=== PATIENT | female | born 1980 | race Two or more races ===

== ENCOUNTER 2020-04-17 07:06 | Inpatient (IN) | payer MEDICAID, OTHER ==
[~2020-04-17] VITALS: Ht 170.2 cm; Wt 87.1 kg
[2020-04-17] MEDS ORDERED: SODIUM CHLORIDE 0.9% 1,000 ML IV ONE (08:00)
[2020-04-17 08:19] LABS: Basophils # (auto) 0 10 ^3/uL (0-0.2); Basophils % (auto) 0.7 % (0.0-2.0); Eosinophils # (auto) 0 10 ^3/uL (0-0.8); Hematocrit 41.4 % (36.0-46.0); Hemoglobin 13.9 g/dL (12.2-16.2); Lymphocytes # (auto) 0.8 10 ^3/uL (0.4-5.4); Lymphocytes % (auto) 24.4 % (10.0-50.0); Mean Corpuscular Hemoglobin 30.7 pg (28.0-32.0); Mean Corpuscular Hgb Conc. 33.7 g/dL (32.0-36.0); Mean Corpuscular Volume 91.1 fL (80.0-100.0); Monocytes # (auto) 0.4 10 ^3/uL (0-1.3); Monocytes % (auto) 13.3 % (0.0-12.0); Neutrophils # (auto) 1.9 10 ^3/uL (1.6-8.6); Neutrophils % (auto) 60.6 % (37.0-80.0); Nucleated Red Blood Cells % 0.1 %; Platelet Count (auto) 225 10^3/uL (140-450); Red Blood Cells 4.54 10^6/uL (4.0-5.20); Red Cell Distribution Width 13.4 % (11.8-14.3); White Blood Cell 3.1 10^3/uL (4.4-10.8)
[2020-04-17 08:34] LABS: Alanine Aminotransferase 56 U/L (13-56); Albumin 2.9 g/dL (3.4-5.0); Anion Gap 5 (5-15); Aspartate Aminotransferase 40 U/L (15-37); BUN/Creatinine Ratio 9.5; Blood Urea Nitrogen 6 mg/dL (7-18); Carbon Dioxide 22 mmol/L (21-32); Chloride 116 mmol/L (98-107); GFR African American 136 mL/min; GFR Non-African American 112 mL/min; Glucose 107 mg/dL (74-106); Magnesium 1.9 mg/dL (1.6-2.6); Potassium 3.2 mmol/L (3.5-5.1); Sodium 143 mmol/L (136-145)
[2020-04-17 08:40] LABS: Alkaline Phosphatase 57 U/L (45-117); Bilirubin, Total 0.3 mg/dL (0.2-1.0); Lactate Dehydrogenase 169 U/L (84-246); Total Protein 6.3 g/dL (6.4-8.2)
[2020-04-17] MEDS ORDERED: AZITHROMYCIN 500MG/ 250ML 250 ML IV ONE (09:30)
[2020-04-17] MEDS ORDERED: cefTRIAXone 1GM/50ML D5W 50 ML IV ONE (09:30)
[2020-04-17 10:50] LABS: Urine Bacteria FEW /hpf (None Seen); Urine Blood Negative /uL (Negative); Urine Mucus FEW (None Seen); Urine Specific Gravity 1.014 (1.001-1.035); Urine WBC 1 /hpf (0 - 5)
[2020-04-17] MEDS ORDERED: MORPHINE SULF INJ 2 MG/ML SYRINGE 1ML IV PRN ×2 (12:30)
[2020-04-17] MEDS ORDERED: NITROGLYCERIN 0.4 MG SL TAB SL PRN (12:30)
[2020-04-17] MEDS ORDERED: HYDROcodone-ACET 5/325MG TAB PO PRN (12:30)
[2020-04-17] MEDS ORDERED: ACETAMINOPHEN 500 MG TAB PO PRN ×2 (12:30)
[2020-04-17] MEDS ORDERED: ONDANSETRON HCL 4 MG/2 ML VIAL IV PRN (12:30)
[2020-04-17] MEDS ORDERED: POTASSIUM EFFERVESENT TAB 25 MEQ PO ONE (12:45)
[2020-04-17] MEDS ORDERED: CHOLECALCIFEROL (VITD3) 1,000IU=25mCg TAB PO ONE (12:45)
[2020-04-17] MEDS ORDERED: ASCORBIC ACID 1,000 MG TAB PO ONE (12:45)
[2020-04-17] MEDS ORDERED: ENOXAPARIN SOD 40 MG/0.4 ML SYRINGE SC ONE (12:45)
[2020-04-17] MEDS ORDERED: FAMOTIDINE 20 MG TAB PO ONE (12:45)
[2020-04-17] MEDS ORDERED: ZINC SULFATE 220mg CAP or TAB PO ONE (12:45)
[2020-04-17] MEDS: DexAMETHasone SOD PHOS 4 MG/1ML SDV INJ IV SCH ×2 (13:28→22:04)
[2020-04-17 14:35] VITALS: BP 96/56
[2020-04-17] MEDS: ALBUTEROL SULF HFA 90MCG INH 200DOSE IN SCH ×2 (14:54→22:01)
[2020-04-17 15:02] VITALS: BP 100/74
[2020-04-17 17:00] VITALS: BP 103/58
[2020-04-17 20:00] VITALS: BP 108/67
[2020-04-17] MEDS: DOXYCYCLINE 100 MG TAB/CAP PO SCH (22:04)
[2020-04-17] MEDS: hydrOXYchloroQUINE SULFATE 200 MG TAB PO SCH (22:04)
[2020-04-17 22:37] VITALS: BP 108/67
[2020-04-18 05:09] LABS: Basophils # (auto) 0 10 ^3/uL (0-0.2); Basophils % (auto) 0.4 % (0.0-2.0); Eosinophils # (auto) 0 10 ^3/uL (0-0.8); Hematocrit 40.7 % (36.0-46.0); Hemoglobin 13.8 g/dL (12.2-16.2); Lymphocytes # (auto) 0.4 10 ^3/uL (0.4-5.4); Lymphocytes % (auto) 10.2 % (10.0-50.0); Mean Corpuscular Volume 91.3 fL (80.0-100.0); Monocytes # (auto) 0.1 10 ^3/uL (0-1.3); Monocytes % (auto) 2.4 % (0.0-12.0); Neutrophils # (auto) 3.2 10 ^3/uL (1.6-8.6); Nucleated Red Blood Cells % 0.1 %; Platelet Count (auto) 231 10^3/uL (140-450); Red Blood Cells 4.46 10^6/uL (4.0-5.20); Red Cell Distribution Width 13.1 % (11.8-14.3); White Blood Cell 3.7 10^3/uL (4.4-10.8)
[2020-04-18 05:17] VITALS: BP 100/56
[2020-04-18 05:26] LABS: Albumin 3.8 g/dL (3.4-5.0); Calcium 9.5 mg/dL (8.5-10.1); Potassium 4.3 mmol/L (3.5-5.1)
[2020-04-18 05:30] LABS: BUN/Creatinine Ratio 12.2; Bilirubin, Total 0.3 mg/dL (0.2-1.0); Total Protein 7.6 g/dL (6.4-8.2)
[2020-04-18] MEDS: ALBUTEROL SULF HFA 90MCG INH 200DOSE IN SCH ×2 (06:00→14:30)
[2020-04-18] MEDS ORDERED: ENOXAPARIN SOD 40 MG/0.4 ML SYRINGE SC SCH (10:00)
[2020-04-18] MEDS ORDERED: POTASSIUM EFFERVESENT TAB 25 MEQ PO SCH (10:00)
[2020-04-18] MEDS ORDERED: ASCORBIC ACID 1,000 MG TAB PO SCH (10:00)
[2020-04-18] MEDS ORDERED: ZINC SULFATE 220mg CAP or TAB PO SCH (10:00)
[2020-04-18] MEDS ORDERED: FAMOTIDINE 20 MG TAB PO SCH (10:00)
[2020-04-18] MEDS: hydrOXYchloroQUINE SULFATE 200 MG TAB PO SCH (10:00)
[2020-04-18] MEDS ORDERED: CHOLECALCIFEROL (VITD3) 1,000IU=25mCg TAB PO SCH (10:00)
[2020-04-18] MEDS: DexAMETHasone SOD PHOS 4 MG/1ML SDV INJ IV SCH (11:14)
[2020-04-18] MEDS: DOXYCYCLINE 100 MG TAB/CAP PO SCH (11:24)
[2020-04-18] MEDS ORDERED: ALBUAER3 IN (11:42)
[2020-04-18] MEDS ORDERED: ASCO10003 PO (11:42)
[2020-04-18] MEDS ORDERED: AZIT500T66 PO (11:42)
[2020-04-18] MEDS ORDERED: CHOL20007 PO (11:42)
[2020-04-18] MEDS ORDERED: hydrOXYchloroQUINE SULFATE 200 MG TAB PO SCH (22:00)
== END 2020-04-18 17:00 | disposition home or self-care (01) | DRG 137 ==
LOC: ER 07:06 → TELE 07:07 → TELE-EAST 15:09
PROVIDERS: ADMIT Nurse Practitioner Acute Care; ATTEND Thoracic Surgery (Cardiothoracic Vascular Surgery)
DX: U07.1 COVID-19 (principal); E44.0 Moderate protein-calorie malnutrition; J12.89 Other viral pneumonia; E83.51 Hypocalcemia; E87.6 Hypokalemia; Z88.8 Allergy status to other drugs, medicaments and biological substances; J06.9 Acute upper respiratory infection, unspecified; J40 Bronchitis, not specified as acute or chronic; Z90.710 Acquired absence of both cervix and uterus; Z68.28 Body mass index [BMI] 28.0-28.9, adult
CPT/HCPCS: 36415; 71045; 80053; 81001; 82728; 83605; 83615; 83735; 84484; 85025; 85379; 86141; 87040; 87070; 87804; 87880; 94640; 96365; 96366; 96368; 96375; G0378; J0696; J1100; J2405

== ENCOUNTER 2023-08-06 07:59 | Emergency (ER) | payer MEDICAID, OTHER ==
[~2023-08-06] VITALS: Ht 170.2 cm; Wt 84.5 kg
[~2023-08-06 07:59] MED LIST: ALBUAER3 IN; ASCO10003 PO; AZIT500T66 PO; CHOL20007 PO
[2023-08-06] MEDS ORDERED: KETOROLAC TROMETH 60MG/2ML VIAL IM ONE (09:00)
[2023-08-06 11:45] LABS: Rapid Influenza A Negative (Negative); Rapid Influenza B Negative (Negative)
[2023-08-06] MEDS ORDERED: SODIUM CHLORIDE 0.9% 1,000 ML IV ONE (11:45)
[2023-08-06] MEDS ORDERED: ACET500T58 PO (12:04)
[2023-08-06] MEDS ORDERED: IBUP-1455 PO (12:04)
[2023-08-06] MEDS ORDERED: LORA10CA PO (12:04)
[2023-08-06 12:05] LABS: COVID19 ANTIGEN SOFIA FIA POSITIVE (NEGATIVE)
[2023-08-06 14:09] VITALS: BP 99/72; PULSE 87; RESP 18; TEMP 97.6; O2SAT 97
== END 2023-08-06 14:22 | disposition home or self-care (01) ==
LOC: ER 07:59
DX: U07.1 COVID-19 (principal)
CPT/HCPCS: 36415; 71046; 87426; 87804; 96360; 96361; 96372; 99284; J1885; J7030

== ENCOUNTER 2024-04-29 22:32 | Emergency (ER) | payer MEDICAID ==
[~2024-04-29] VITALS: Ht 170.2 cm; Wt 85.8 kg
[~2024-04-29 22:32] MED LIST changes: +ACET500T58 PO; +IBUP-1455 PO; +LORA10CA PO
[2024-04-29] MEDS: methylPREDNISolone SOD SUCC 125 MG/2 ML VL IV ONE (23:02)
[2024-04-29] MEDS: EPINEPHrine HCL 1 MG/1 ML AMP SC ONE (23:03)
[2024-04-29] MEDS: FAMOTIDINE (10MG/ML) 2ML VL IV ONE (23:03)
[2024-04-29] MEDS: diphenhdrAMINE HCL 50 MG/1 ML VL IV ONE (23:03)
[2024-04-30 00:25] VITALS: BP 126/70; TEMP 97.2
[2024-04-30 01:40] VITALS: PULSE 72; RESP 18; O2SAT 98
== END 2024-04-30 01:54 | disposition home or self-care (01) ==
LOC: ER 22:32
DX: T78.49XA Other allergy, initial encounter (principal); Z79.899 Other long term (current) drug therapy; X58.XXXA Exposure to other specified factors, initial encounter
CPT/HCPCS: 96372; 96374; 96375; 99284; J0171; J1200; J2919; J3490

== ENCOUNTER 2025-02-28 21:18 | Emergency (ER) | payer MEDICAID ==
[~2025-02-28] VITALS: Ht 170.2 cm; Wt 88.8 kg
[2025-02-28] MEDS: FAMOTIDINE (10MG/ML) 2ML VL IV ONE (21:44)
[2025-02-28] MEDS: SODIUM CHLORIDE 0.9% 1,000 ML IV ONE (21:44)
[2025-02-28] MEDS: diphenhdrAMINE HCL 50 MG/1 ML VL IV ONE (21:44)
[2025-02-28] MEDS: EPINEPHrine HCL 1 MG/1 ML AMP IM ONE (21:44)
[2025-02-28] MEDS ORDERED: DexAMETHasone INJECTION 10 MG in D5W 5% 50 ML IV ONE (21:45)
[2025-02-28] MEDS: ALBUTEROL SULF 2.5 MG/0.5ML(0.5%) NEB SOLN NEB ONE (21:48)
[2025-02-28] MEDS: DexAMETHasone SOD PHOS 10MG/1ML VIAL INJ IV ONE (21:51)
[2025-02-28 21:54] VITALS: PULSE 88; RESP 22; O2SAT 99
--- NOTE | 2025-02-28 22:47 | ED.PDOC ---
History of Present Illness HPI Comments 44 y/o obese F, with a history of shellfish allergy, presents with c/o throat- tightness, with associated raspy-voice and shortness of breath, and generalized itching sensation s/p exposure to known allergen, today. Patient reports on progressively worsening symptoms following sudden onset 30 minutes prior to arrival after consuming "shrimp" 2 hours ago. She endorses on taking Benadryl, with no improvement or relief to symptoms, earlier. Denies any chest or throat pain, rash, or other associated symptoms. Chief Complaint: Allergic Reaction Time Seen by MD: 21:50 Primary Care Provider: STEFANO Reviewed Notes: Nurses Notes, Medications, Allergies Allergies: Coded Allergies: Shellfish Allergy (Verified Allergy, Intermediate, 02/28/25) Anaphylaxis, Angioedema, Bronchospasm Uncoded Allergies: CEFPODAXIN (Allergy, Unknown, 04/17/20) Home Meds Active Scripts Ibuprofen Micronized (Ibuprofen) 800 Mg Tab, 800 MG PO Q8HP PRN, #20 TAB Prov:SEAN BARRERA PAC 08/06/23 Loratadine (Claritin) 10 Mg Cap, 10 MG PO DAILY for 14 Days, #14 CAP Prov:SEAN BARRERA PAC 08/06/23 Acetaminophen (Acetaminophen) 500 Mg Tab, 500 MG PO Q4HP PRN, #30 TAB Prov:SEAN BARRERA PAC 08/06/23 Albuterol Sulfate (VENTOLIN MDI) 90 Mcg Ih, 90 MCG IN Q6HP PRN, #1 INH Prov:JESSIE OLMSTEAD MD 04/18/20 Azithromycin (Azithromycin) 500 Mg Tab, 1 TAB PO DAILY, #5 TAB Prov:JESSIE OLMSTEAD MD 04/18/20 Cholecalciferol (VITAMIN D3) 2,000 Unit Tab, 2 TAB PO DAILY for 60 Days, #120 TAB 0 Refills Prov:JESSIE OLMSTEAD MD 04/18/20 Ascorbic Acid (Gnp Vitamin C W/Valeri Hips) 1,000 Mg Tab, 1000 MG PO DAILY for 60 Days, #60 TAB Prov:JESSIE OLMSTEAD MD 04/18/20 Information Source: Patient Mode of Arrival: Ambulatory Severity: Moderate Timing: Minutes Duration: Since onset Prehospital treatment: Other (benadryl) Review of Systems: REVIEW OF SYSTEMS: No fever, no chills, or fatigue HEENT: Raspy-voice, throat tightness. No sore throat, no earache, no congestion, no neck pain. Cardiac: No chest pain. No palpitations. Lungs: Shortness of breath, no cough. GI: No nausea, no vomiting, no diarrhea, no constipation, no abdominal pain : No dysuria, frequency, or urgency. No hematuria. Musculoskeletal: No joint pain , no joint swelling, no extremity edema. Skin: Generalized itching, no rash Neuro: No headache, no dizziness, no weakness Vital Signs Vital Signs Date Time Temp Pulse Resp B/P (MAP) Pulse Ox O2 Delivery O2 Flow Rate FiO2 03/01/25 02:00 98.7 76 17 104/67 (79) 99 98.7 02/28/25 21:54 Room Air* 0 21 Physical Exam General: Awake, alert and oriented. No acute distress. Skin: No hives or rash. Skin in warm, dry and intact. Appropriate color for ethnicity. HEENT: Wheezy, raspy-sounding voice. No posterior pharyngeal edema. The head is normocephalic and atraumatic. Conjunctivae are clear without exudates or hemorrhage. Sclera is non-icteric. EOM are intact. No signs of nystagmus. Eyelids are normal in appearance without swelling or lesions. Oral mucosa is pink and moist Neck: The neck is supple with normal range of motion. No JVD. Cardiac: Heart rate rapid, rhythm is normal. No murmurs, gallops, or rubs are auscultated. Respiratory: No signs of respiratory distress. No stridor or drooling. Lung sounds are clear in all lobes bilaterally without rales or rhonchi. Abdominal: Abdomen is soft, non-tender without distention. Bowel sounds are present and normoactive in all four quadrants. Extremities: Upper and lower extremities are atraumatic in appearance without deformity or edema. Neurological: The patient is awake, alert and oriented to person, place, and time with normal speech. Speech is clear. There is no facial asymmetry. Psychiatric: Appropriate mood and affect. Good judgement and insight. Past Medical History PAST MEDICAL HISTORY: Denies Surgical History: Hysterectomy ORGANIZATIONAL EFFECTIVENESS CONSULTANT History: No Pertinent ORGANIZATIONAL EFFECTIVENESS CONSULTANT History Family History Family History: Reviewed,noncontributory to illness, No family hx of Cancer, No family hx of DM, No family hx of Heart gildardo, No family hx of HTN, No family hx ofKidney gildardo, No family hx of Liver gildardo, No family hx of Lung gildardo, No family hx of Stroke Social History Smoker: Non-Smoker Alcohol: Denies ETOH Use Drugs: Denies Drug Use Lives In: Home Other Allergy to shellfish Was a procedure done? Was a procedure done?: No Differential Dx Considerations may include: Anaphylaxis, Angioedema, Bronchospasm X-Ray, Labs, Meds, VS Vital Signs Date Time Temp Pulse Resp B/P (MAP) Pulse Ox O2 Delivery O2 Flow Rate FiO2 03/01/25 02:00 98.7 76 17 104/67 (79) 99 98.7 02/28/25 21:54 88 22 99 Room Air* 0 21 02/28/25 21:53 99.9 88 23 107/63 (78) 99 99.9 02/28/25 21:48 18 100 Nasal Cannula* 1 24 02/28/25 21:35 20 98 Room Air 0 02/28/25 21:30 98.0 97 20 101/74 (83) 98 98.0 Current Medications Medications (Trade) Dose Ordered Sig/Roseanne Route Start Time Stop Time Status Last Admin Albuterol (Ventolin Medneb) 2.5 mg ONCE ONCE NEB 02/28/25 21:30 02/28/25 21:31 DC 02/28/25 21:48 Diphenhydramine HCl (Benadryl Injection) 50 mg ONCE ONCE IV 02/28/25 21:30 02/28/25 21:31 DC 02/28/25 21:44 Sodium Chloride 1,000 ml @ 1,000 mls/hr Q1H ONCE IV 02/28/25 21:30 02/28/25 22:29 DC 02/28/25 21:44 Epinephrine HCl 0.3 mg ONCE ONCE IM 02/28/25 21:30 02/28/25 21:31 DC 02/28/25 21:44 Famotidine (Pepcid Injection) 20 mg ONCE ONCE IV 02/28/25 21:30 02/28/25 21:31 DC 02/28/25 21:44 Dexamethasone Sodium Phosphate (Decadron Injection) 10 mg ONCE ONCE IV 02/28/25 21:45 02/28/25 21:46 DC 02/28/25 21:[address] [address] Ph: [phone] DIAGNOSTIC IMAGING Diagnostic Imaging Report : [id number] Signed PATIENT: GERTRUDE GALLO ACCT: [id number] UNIT: [id number] : 1980 LOC: ER ROOM / BED: / AGE / SEX: 44 / F ADM STATUS: REG ER SERVICE 24 ORDERING PHYSICIAN: JEFF CATHERINE MD PROCEDURE(s): CXRP - CHEST PORTABLE REASON: CP ORDER NUMBER(s): [id number], ACCESSION NUMBER(s): [id number] CHEST RADIOGRAPH Indication: CP Technique: Single frontal view of the chest was obtained Comparison: CHEST PORTABLE on DOS: 04/17/20 FINDINGS: Lines and Tubes: None Lungs: No focal consolidation. Pleura: No effusion. No pneumothorax. Cardiomediastinal contours: Unremarkable Bones: No acute osseous abnormality. IMPRESSION: 1. No acute cardiopulmonary disease. ATED BY: JOEY JAMES Jr., DO DICTATED DATE/TIME: 02/28/252254 SIGNED BY: JOEY JAMES Jr., SIGNED DATE/TIME: 02/28/252254 CC: Time of 1ST Reevaluation: 22:20 Reevaluation 1ST: Improved Patient Education/Counseling: Need For Follow Up Family Education/Counseling: Need For Follow Up Departure 1 Departure Time of Disposition: 02:26 Impression: Primary Impression: Allergic reaction Disposition: HOME / SELF CARE / HOMELESS Condition: Stable Additional Instructions: ED DISCHARGE INSTRUCTIONS Instructions: Please read all instructions provided in this packet carefully. Although you have been discharged from the Emergency Department, this does not mean that you have a "clean bill of health". No definitive diagnosis for your symptoms has been made today. It is possible that you are in the process of developing a serious illness. This is why you must return to the ED without fail if any new or worsening symptoms (especially if your symptoms include chest pain, trouble breathing, abdominal pain, fever, headache, confusion, trouble seeing, or trouble walking) It is also very important that you see a primary care doctor within the next 3-5 days to follow up. If you are unable to get an appointment, return to the ED for re-evaluation. Allergic Reaction: Care Instructions An allergic reaction is an excessive response from your immune system to a medicine, chemical, food, insect bite, or other substance. A reaction can range from mild to life-threatening. Some people have a mild rash, hives, and itching or stomach cramps. In severe reactions, swelling of your tongue and throat can close up your airway so that you cannot breathe. Follow-up care is a melo part of your treatment and safety. Be sure to make and go to all appointments, and call your doctor if you are having problems. It's also a good idea to know your test results and keep a list of the medicines you take. How can you care for yourself at home? If you know what caused your allergic reaction, be sure to avoid it. Your allergy may become more severe each time you have a reaction. Take an hysw-hsv-vmluebo antihistamine, such as cetirizine (Zyrtec) or loratadine (Claritin), to treat mild symptoms. Read and follow directions on the label. Some antihistamines can make you feel sleepy. Do not give antihistamines to a child unless you have checked with your doctor first. Mild symptoms include sneezing or an itchy or runny nose; an itchy mouth; a few hives or mild itching; and mild nausea or stomach discomfort. Do not scratch hives or a rash. Put a cold, moist towel on them or take cool baths to relieve itching. Put ice packs on hives, swelling, or insect stings for 10 to 15 minutes at a time. Put a thin cloth between the ice pack and your skin. Do not take hot baths or showers. They will make the itching worse. Your doctor may prescribe an epinephrine medicine, such as an epinephrine shot or nasal spray, to carry with you in case you have a severe reaction. Learn how to give yourself the medicine and keep it with you at all times. Make sure it is not . Go to the emergency room every time you have a severe reaction, even if you have used your epinephrine medicine and are feeling better. Symptoms can come back after using the medicine. Wear medical alert jewelry that lists your allergies. You can buy this at most [employer]. When should you call for help? Use an epinephrine medicine, such as an epinephrine shot or nasal spray, if: You think you are having a severe allergic reaction. You have symptoms in more than one body area, such as mild nausea and an itchy mouth. After giving an epinephrine medicine, call 911, even if you feel better. Call 911 anytime you think you may need emergency care. For example, call if: You have symptoms of a severe allergic reaction. These may include: Sudden raised, red areas (hives) all over your body. Swelling of the throat, mouth, lips, or tongue. Trouble breathing. Passing out (losing consciousness). Or you may feel very lightheaded or suddenly feel weak, confused, or restless. Severe belly pain, nausea, vomiting, or diarrhea. Call your doctor now or seek immediate medical care if: You have symptoms of an allergic reaction, such as: A rash or hives (raised, red areas on the skin). Itching. Swelling. Mild belly pain or nausea. Watch closely for changes in your health, and be sure to contact your doctor if: You do not get better as expected. Credits for Allergic Reaction: Care Instructions Current as of: August 21, 2024 Author: [employer] Staff Clinical Review Board All [employer] education is reviewed by a team that includes physicians, nurses, advanced practitioners, registered dieticians, and other healthcare professionals. e-Prescriptions Diphenhydramine Hcl (Benadryl Allergy) 25 Mg Tab 25 MG PO TIDPRN PRN for 3 Days, #9 TAB Prov: JEFF CATHERINE MD 03/01/25 Prednisone (Prednisone) 20 Mg Tab 20 MG PO DAILY for 3 Days, #3 MG Prov: JEFF CATHERINE MD 03/01/25 Epinephrine (Anaphylaxis) (Auvi-Q) 0.1 Mg/0.1 Ml Inj 0.3 MG IJ O PRN for 1 Day, #2 INJ Prov: JEFF CATHERINE MD 03/01/25 Comments 44-year-old female who presents to the emergency department with allergic reaction to shrimp. The patient observed in the emergency department for over 4 hours, treated with epinephrine, Decadron, Benadryl, Pepcid. Patient reports significant improvement of her symptoms. No hypoxia, respiratory distress. Patient is felt stable for discharge home to follow up with the primary care provider promptly for re-evaluation. Patient well-appearing, nontoxic. Advised prompt follow-up with PCP, return to the ED with any new, worsening or concerning symptoms. Extensive evaluation was performed in attempt to identify or rule out: (See differential diagnosis section) The following tests were ordered, and results were reviewed by me and discussed with patient: (See diagnostic results section) I reviewed and agreed with the following test results read by other providers: Chest x-ray I reviewed the following notes from the pt's past medical encounters: April 29, 2024 encounter for allergic reaction. Additional information was gathered from interviewing the following independent historians: N/A Discussion of management or test interpretation with external physician/other qualified health farm or ranch animal caretaker: N/A Addressed an acute or chronic illness that poses a threat to life or bodily function: Allergic reaction Drug therapy requiring intensive monitoring for toxicity: IV Decadron, IM epinephrine Parenteral controlled substances: N/A Decision regarding elective major surgery with identified patient or procedure risk factors: N/A Decision regarding emergency major surgery: N/A Decision not to resuscitate or to de-escalate care because of poor prognosis: N/A Diagnosis or treatment significantly limited by social determinants of health: N/A Decision regarding hospitalization or escalation of hospital level of care: Risks and benefits of admission for further treatment of patient's condition was considered however due to patient's stable condition patient will be discharged to follow up closely or return to care for worsening of condition or inability to follow up. Critical Care Note Critical Care Time?: Yes (35 min-critical care time only) Stability Stability form required: No Heart Score Heart Score: Heart Score Response (Comments) Value History N/A 0 EKG N/A 0 Age N/A 0 Risk Factors N/A 0 Troponin N/A 0 Total 0 I personally scribed for JEFF CATHERINE MD ([email or web address]) on 02/28/25 at 22:47. Electronically submitted by Cody Herman ([email or web address]). I personally scribed for JEFF CATHERINE MD ([email or web address]) on 02/28/25 at 23:19. Electronically submitted by Cody Herman ([email or web address]). JEFF CATHERINE MD February 28, 2025 22:47
--- NOTE | 2025-02-28 22:57 | DVH ---
CHEST RADIOGRAPH Indication: CP Technique: Single frontal view of the chest was obtained Comparison: CHEST PORTABLE on DOS: 04/17/20 FINDINGS: Lines and Tubes: None Lungs: No focal consolidation. Pleura: No effusion. No pneumothorax. Cardiomediastinal contours: Unremarkable Bones: No acute osseous abnormality. IMPRESSION: 1. No acute cardiopulmonary disease.
[2025-03-01 02:00] VITALS: BP 104/67; PULSE 76; RESP 17; TEMP 98.7; O2SAT 99
[2025-03-01] MEDS ORDERED: DIPH25TA54 PO (02:32)
[2025-03-01] MEDS ORDERED: PRED20TA2 PO (02:32)
[2025-03-01] MEDS ORDERED: EPIN0.1I11 IJ (02:32)
== END 2025-03-01 02:44 | disposition home or self-care (01) ==
LOC: ER 21:18
DX: T78.40XA Allergy, unspecified, initial encounter (principal); Z79.899 Other long term (current) drug therapy; Z90.710 Acquired absence of both cervix and uterus; Z88.8 Allergy status to other drugs, medicaments and biological substances; Z91.013 Allergy to seafood
CPT/HCPCS: 71045; 94640; 96361; 96372; 96374; 96375; 99284; J0171; J1100; J1200; J3490; J7030; J7060